=== PATIENT | male | born 1960 | race Caucasian/White ===

== ENCOUNTER 2021-12-14 08:00 | Emergency (ER) | payer MEDICARE, OTHER ==
[~2021-12-14] VITALS: Ht 180.3 cm; Wt 86.2 kg
--- NOTE | 2021-12-14 08:19 | NUR ---
Recived pt 61 yrs male walling in c/o maria isabel not feeling function will no weeknes respition spont and easy no distress no SI & HI seen by Dr Albarado
--- NOTE | 2021-12-14 08:20 | NUR ---
AT BEDSIDE FOR EVAL.
[2021-12-14] MEDS ORDERED: LORAZEPAM 1 MG TABLET ONE (08:42)
--- NOTE | 2021-12-14 08:46 | NUR ---
Blood drow by lab tack ekg done
[2021-12-14] MEDS ORDERED: LORAZEPAM 1 MG TABLET PO ONE (09:00)
[2021-12-14 09:05] LABS: BASOPHILS % (AUTO) 0.3 % (0.0-2.0); EOSINOPHILS % (AUTO) 0.7 % (0.0-6.0); HEMATOCRIT 47 % (39-51); HEMOGLOBIN 15.4 g/dL (13.5-17.5); LYMPHOCYTES # (AUTO) 0.8 K/uL (0.8-4.8); LYMPHOCYTES % (AUTO) 12.1 % (20.0-44.0); MEAN CORPUSCULAR HGB CONC 33 g/dl (31.0-36.0); MEAN CORPUSCULAR VOLUME 95 fL (80-96); MONOCYTES # (AUTO) 0.6 K/uL (0.1-1.30); MONOCYTES % (AUTO) 9.3 % (2.0-12.0); NEUTROPHILS # (AUTO) 5.1 K/uL (1.8-8.9); NEUTROPHILS % (AUTO) 77.6 % (43.0-81.0); PLATELET COUNT (AUTO) 231 K/uL (150-450); RED BLOOD CELL COUNT(AUTO) 4.94 MIL/uL (4.5-6.0); WHITE BLOOD COUNT (AUTO) 6.6 K/uL (4.3-11.0)
[2021-12-14 09:11] VITALS: BP 124/80
[2021-12-14 09:23] LABS: ALANINE AMINOTRANSFERASE 31 U/L (12-78); ALBUMIN 3.7 g/dL (3.4-5.0); ALCOHOL, BLOOD < 3 mg/dL (0-0); ALKALINE PHOSPHATASE 71 U/L (46-116); ASPARTATE AMINOTRANSFERASE 21 U/L (15-37); BILIRUBIN,DIRECT 0.1 mg/dL (0.0-0.2); BILIRUBIN,TOTAL 0.5 mg/dL (0.2-1.0); CALCIUM, SERUM 9.1 mg/dL (8.5-10.1); CARBON DIOXIDE 25 mmol/L (21-32); CHLORIDE 106 mmol/L (98-107); CREATININE 0.9 mg/dL (0.6-1.3); GLUCOSE 110 mg/dL (74-106); SODIUM SERUM 138 mmol/L (136-145); UREA NITROGEN, BLOOD 15 mg/dL (7-18)
[2021-12-14 09:24] LABS: ACETAMINOPHEN 0 ug/ml (10-30)
--- NOTE | 2021-12-14 09:40 | NUR ---
pt walking out her refused his ativan 1mg Brando coburn and aware refused tx
== END 2021-12-14 09:52 | disposition left against medical advice (07) ==
LOC: ER 08:02
DX: F41.9 Anxiety disorder, unspecified (principal); R44.0 Auditory hallucinations; F32.A Depression, unspecified; Z86.59 Personal history of other mental and behavioral disorders; Z60.2 Problems related to living alone
CPT/HCPCS: 36415; 80048-TC; 80076-TC; 85025-TC; G0480

== ENCOUNTER 2021-12-27 07:16 | Emergency (ER) | payer MEDICARE, OTHER ==
[~2021-12-27] VITALS: Ht 180.3 cm; Wt 86.2 kg
[2021-12-27] MEDS ORDERED: LORAZEPAM 1 MG TABLET ONE (07:55)
--- NOTE | 2021-12-27 07:57 | NUR ---
DR FREEMAN AT BEDSIDE TALKING TO THE PATIENT
[2021-12-27] MEDS ORDERED: LORAZEPAM 1 MG TABLET PO ONE (08:00)
--- NOTE | 2021-12-27 08:00 | NUR ---
bibs for feeling anxious. Will continue to monitor the patient.
[2021-12-27] MEDS ORDERED: LORA-259 PO (08:05)
--- NOTE | 2021-12-27 08:08 | NUR ---
Patient discharged to home in stable condition. Written and verbal after care instructions given. Patient verbalizes understanding of instruction.
[2021-12-27 08:09] VITALS: BP 131/81
== END 2021-12-27 08:09 | disposition home or self-care (01) ==
LOC: ER 07:21
DX: F41.9 Anxiety disorder, unspecified (principal); Z76.0 Encounter for issue of repeat prescription; F42.9 Obsessive-compulsive disorder, unspecified; Z86.59 Personal history of other mental and behavioral disorders; Z60.2 Problems related to living alone

== ENCOUNTER 2021-12-28 02:26 | Emergency (ER) | payer MEDICARE, OTHER ==
[~2021-12-28] VITALS: Ht 180.3 cm; Wt 86.2 kg
[~2021-12-28 02:26] MED LIST: LORA-259 PO
[2021-12-28] MEDS ORDERED: MECLIZINE HCL 12.5 MG TABLET ONE (02:54)
[2021-12-28] MEDS ORDERED: MECLIZINE HCL 12.5 MG TABLET PO ONE (03:00)
--- NOTE | 2021-12-28 03:20 | NUR ---
TO ER BED 9. [id number] FRM HOME C/O DIZZY X 2 WEEKS, STATES "CANT THINK" "HE'S THE ONE SPINNING, NOT THE ROOM". DID NOT TAKE ANYTHING FOR RELIEF. DENIES AND CHEST PAIN. NOT IN RESPIRATORY DISTRESS. CONNECTED TO MONITOR. AWAITING MD ADAME
[2021-12-28 03:22] LABS: BASOPHILS % (AUTO) 0.4 % (0.0-2.0); EOSINOPHILS % (AUTO) 1.4 % (0.0-6.0); HEMATOCRIT 49 % (39-51); HEMOGLOBIN 16.3 g/dL (13.5-17.5); LYMPHOCYTES # (AUTO) 1.2 K/uL (0.8-4.8); LYMPHOCYTES % (AUTO) 15.8 % (20.0-44.0); MEAN CORPUSCULAR HGB CONC 34 g/dl (31.0-36.0); MEAN CORPUSCULAR VOLUME 95 fL (80-96); MONOCYTES # (AUTO) 0.7 K/uL (0.1-1.30); MONOCYTES % (AUTO) 8.7 % (2.0-12.0); NEUTROPHILS # (AUTO) 5.6 K/uL (1.8-8.9); NEUTROPHILS % (AUTO) 73.7 % (43.0-81.0); PLATELET COUNT (AUTO) 214 K/uL (150-450); RED BLOOD CELL COUNT(AUTO) 5.15 MIL/uL (4.5-6.0); WHITE BLOOD COUNT (AUTO) 7.6 K/uL (4.3-11.0)
[2021-12-28 03:30] VITALS: BP 141/79
--- NOTE | 2021-12-28 03:30 | NUR ---
PT REFUSED CT; DR. ARNALDO GUERRERO AWARE
[2021-12-28 03:31] LABS: CALCIUM, SERUM 9.1 mg/dL (8.5-10.1); CARBON DIOXIDE 27 mmol/L (21-32); CHLORIDE 103 mmol/L (98-107); GLUCOSE 105 mg/dL (74-106); SODIUM SERUM 136 mmol/L (136-145); UREA NITROGEN, BLOOD 27 mg/dL (7-18)
[2021-12-28 03:38] LABS: ALANINE AMINOTRANSFERASE 26 U/L (12-78); ALBUMIN 3.9 g/dL (3.4-5.0); ALKALINE PHOSPHATASE 87 U/L (46-116); ASPARTATE AMINOTRANSFERASE 22 U/L (15-37); BILIRUBIN,DIRECT 0.1 mg/dL (0.0-0.2); BILIRUBIN,TOTAL 0.6 mg/dL (0.2-1.0); TOTAL PROTEIN, SERUM 7.6 g/dL (6.4-8.2)
--- NOTE | 2021-12-28 03:42 | NUR ---
Patient discharged to home in stable condition. Written and verbal after care instructions given. Patient verbalizes understanding of instruction.
== END 2021-12-28 04:15 | disposition home or self-care (01) ==
LOC: ER 02:33
DX: Z71.1 Person with feared health complaint in whom no diagnosis is made (principal); F41.9 Anxiety disorder, unspecified; Z76.5 Malingerer [conscious simulation]; Z86.59 Personal history of other mental and behavioral disorders; Z60.2 Problems related to living alone; Z79.52 Long term (current) use of systemic steroids
CPT/HCPCS: 36415; 80048; 80076; 84484; 85025; 85730; 93005; 99284; J8597

== ENCOUNTER 2022-03-09 00:05 | Emergency (ER) | payer MEDICARE, OTHER ==
[~2022-03-09] VITALS: Ht 180.3 cm; Wt 83.9 kg
--- NOTE | 2022-03-09 00:20 | NUR ---
TO ER BED 14. [id number] FROM HOME C/O ANXIETY. AAOX4. AMBULATORY WITH STEADY GAIT. BREATHING IS EVEN AND NONLABORED. CONNECTED TO MONITOR. AWAITING MD ADAME
[2022-03-09] MEDS ORDERED: clonazePAM 1 MG TABLET PO ONE ×2 (00:30→03:30)
[2022-03-09] MEDS ORDERED: clonazePAM 0.5 MG TABLET ONE ×2 (00:40→03:27)
[2022-03-09] MEDS ORDERED: CLOM25CA2 PO (03:47)
[2022-03-09] MEDS ORDERED: CLON1TAB PO (03:47)
[2022-03-09 03:51] VITALS: BP 136/84
--- NOTE | 2022-03-09 03:51 | NUR ---
Patient discharged to home in stable condition. Written and verbal after care instructions given. Patient verbalizes understanding of instruction.
== END 2022-03-09 03:55 | disposition home or self-care (01) ==
LOC: ER 00:12
DX: F41.9 Anxiety disorder, unspecified (principal); F42.9 Obsessive-compulsive disorder, unspecified; F32.A Depression, unspecified; Z60.2 Problems related to living alone; Z79.899 Other long term (current) drug therapy
CPT/HCPCS: 82962-TC

== ENCOUNTER 2022-03-13 13:30 | Emergency (ER) | payer MEDICARE, OTHER ==
[~2022-03-13] VITALS: Ht 180.3 cm; Wt 83.9 kg
[~2022-03-13 13:30] MED LIST changes: +CLOM25CA2 PO; +CLON1TAB PO
--- NOTE | 2022-03-13 13:31 | NUR ---
TO ER BED 14, BIB RA 860 FROM HOME,C/O HEADACHE,TRIPPED/FELL "FEW DAYS AGO, AAOX3, BREATHING EVEN AND NON LABORED, AWAITING MD ADAME
[2022-03-13] MEDS ORDERED: clonazePAM 1 MG TABLET PO ONE ×2 (14:30→17:30)
[2022-03-13] MEDS ORDERED: clonazePAM 0.5 MG TABLET ONE ×2 (14:36→17:04)
--- NOTE | 2022-03-13 15:05 | NUR ---
COVID SWAB DONE AND SENT TO LAB
[2022-03-13 15:14] LABS: BILIRUBIN,URINE NEGATIVE (NEGATIVE); COLOR,URINE YELLOW (YELLOW); LEUKOCYTE ESTERASE ,URINE NEGATIVE (NEGATIVE); NITRITE, URINE NEGATIVE (NEGATIVE); PH,URINE 6.5 (5.0-8.0); PROTEIN,URINE NEGATIVE (NEGATIVE); UGLUCOSE NEGATIVE (NEGATIVE); UROBILINOGEN,URINE 0.2 EU/dL (0.2)
[2022-03-13 15:16] LABS: BASOPHILS % (AUTO) 0.2 % (0.0-2.0); EOSINOPHILS % (AUTO) 0.5 % (0.0-6.0); HEMATOCRIT 49 % (39-51); HEMOGLOBIN 16.4 g/dL (13.5-17.5); LYMPHOCYTES # (AUTO) 0.9 K/uL (0.8-4.8); LYMPHOCYTES % (AUTO) 12.9 % (20.0-44.0); MEAN CORPUSCULAR HGB CONC 34 g/dl (31.0-36.0); MEAN CORPUSCULAR VOLUME 93 fL (80-96); MONOCYTES # (AUTO) 0.5 K/uL (0.1-1.30); MONOCYTES % (AUTO) 7.4 % (2.0-12.0); NEUTROPHILS # (AUTO) 5.8 K/uL (1.8-8.9); PLATELET COUNT (AUTO) 243 K/uL (150-450); RED BLOOD CELL COUNT(AUTO) 5.22 MIL/uL (4.5-6.0); WHITE BLOOD COUNT (AUTO) 7.3 K/uL (4.3-11.0)
[2022-03-13 15:25] LABS: CARBON DIOXIDE 31 mmol/L (21-32); CHLORIDE 103 mmol/L (98-107); GLUCOSE 109 mg/dL (74-106); POTASSIUM 3.8 mmol/L (3.5-5.1); SODIUM SERUM 139 mmol/L (136-145); UREA NITROGEN, BLOOD 18 mg/dL (7-18)
[2022-03-13 15:31] LABS: ALANINE AMINOTRANSFERASE 25 U/L (12-78); ALKALINE PHOSPHATASE 68 U/L (46-116); ASPARTATE AMINOTRANSFERASE 18 U/L (15-37); BILIRUBIN,DIRECT 0.2 mg/dL (0.0-0.2); BILIRUBIN,TOTAL 0.8 mg/dL (0.2-1.0); TOTAL PROTEIN, SERUM 7.7 g/dL (6.4-8.2)
[2022-03-13] MEDS ORDERED: TEMA15CA5 PO (15:33)
[2022-03-13] MEDS ORDERED: MIRT7.5T10 PO (15:33)
[2022-03-13 15:39] LABS: ALCOHOL, BLOOD < 3 mg/dL (0-0)
[2022-03-13 16:22] LABS: BACTERIA,URINE None seen /HPF (None Seen); MUCUS,URINE Few /LPF (None Seen); RBC,URINE 0-2 /HPF (0-2); SQUAMOUS EPITHELIAL CELL,UR 0-2 /HPF (None Seen); WBC,URINE 0-2 /HPF (0-3)
--- NOTE | 2022-03-13 16:23 | NUR ---
CALLED [facility] [phone]
--- NOTE | 2022-03-13 16:43 | NUR ---
GOT BED 215-A AFTER COVID RESULT.
--- NOTE | 2022-03-13 18:05 | NUR ---
Patient discharged to home in stable condition. Written and verbal after care instructions given. Patient verbalizes understanding of instruction.
[2022-03-13 18:19] VITALS: BP 130/81
== END 2022-03-13 18:19 | disposition home or self-care (01) ==
LOC: ER 13:48
DX: F41.9 Anxiety disorder, unspecified (principal); R51.9 Headache, unspecified; Z20.822 Contact with and (suspected) exposure to COVID-19; Z91.81 History of falling; F42.9 Obsessive-compulsive disorder, unspecified; F32.9 Major depressive disorder, single episode, unspecified; Z79.899 Other long term (current) drug therapy; R03.0 Elevated blood-pressure reading, without diagnosis of hypertension
CPT/HCPCS: 36415; 80048-TC; 80076-TC; 81001; 85025-TC; C9803; G0480

== ENCOUNTER 2022-03-28 19:39 | Emergency (ER) | payer MEDICARE, OTHER ==
[~2022-03-28] VITALS: Ht 170.2 cm; Wt 65.3 kg
[~2022-03-28 19:39] MED LIST changes: -CLOM25CA2 PO; -LORA-259 PO; +MIRT7.5T10 PO; +TEMA15CA5 PO
[2022-03-28] MEDS ORDERED: IV NS 0.9% 1,000 ML BAG IV ONE (20:30)
[2022-03-28 20:39] VITALS: BP 114/71
--- NOTE | 2022-03-28 20:39 | NUR ---
[id number] FROM HOME C/O LIGHTHEADEDNESS WHEN WALKING WITH GENERALIZED BODY. WEAKNESS ORTHO BP SITTIN/78 STANDING 114/71. PT A/OX4. TOLERATING R/A WELL; RESP EVEN AND NON LABORED. AMBULATORY WITH STEADY GAIT
--- NOTE | 2022-03-28 20:53 | NUR ---
BLOOD COLLECTED AND SENT TO LAB
[2022-03-28 21:26] LABS: BASOPHILS % (AUTO) 0.3 % (0.0-2.0); EOSINOPHILS % (AUTO) 0.9 % (0.0-6.0); HEMATOCRIT 51 % (39-51); LYMPHOCYTES # (AUTO) 1.3 K/uL (0.8-4.8); LYMPHOCYTES % (AUTO) 29.4 % (20.0-44.0); MEAN CORPUSCULAR HGB CONC 33 g/dl (31.0-36.0); MEAN CORPUSCULAR VOLUME 92 fL (80-96); MONOCYTES # (AUTO) 0.5 K/uL (0.1-1.30); MONOCYTES % (AUTO) 11.4 % (2.0-12.0); NEUTROPHILS # (AUTO) 2.6 K/uL (1.8-8.9); PLATELET COUNT (AUTO) 234 K/uL (150-450); RED BLOOD CELL COUNT(AUTO) 5.54 MIL/uL (4.5-6.0); WHITE BLOOD COUNT (AUTO) 4.5 K/uL (4.3-11.0)
[2022-03-28] MEDS ORDERED: LORAZEPAM 1 MG TABLET PO ONE (21:30)
[2022-03-28] MEDS ORDERED: LORAZEPAM 1 MG TABLET ONE (21:37)
[2022-03-28 21:48] LABS: ALANINE AMINOTRANSFERASE 52 U/L (12-78); ALBUMIN 3.6 g/dL (3.4-5.0); ALKALINE PHOSPHATASE 59 U/L (46-116); ASPARTATE AMINOTRANSFERASE 32 U/L (15-37); BILIRUBIN,DIRECT 0.2 mg/dL (0.0-0.2); BILIRUBIN,TOTAL 0.5 mg/dL (0.2-1.0); CALCIUM, SERUM 8.5 mg/dL (8.5-10.1); CARBON DIOXIDE 26 mmol/L (21-32); CHLORIDE 103 mmol/L (98-107); CREATININE 1.3 mg/dL (0.6-1.3); GLUCOSE 92 mg/dL (74-106); POTASSIUM 3.6 mmol/L (3.5-5.1); SODIUM SERUM 139 mmol/L (136-145); TOTAL PROTEIN, SERUM 7.6 g/dL (6.4-8.2); UREA NITROGEN, BLOOD 23 mg/dL (7-18)
--- NOTE | 2022-03-28 22:00 | NUR ---
PATIENT REQUESTED FOR IV REMOVAL. IV WAS REMOVED AND 4X4 WAS PLACED.
--- NOTE | 2022-03-28 22:23 | NUR ---
Patient eloped from facility. ER MD notified.
[2022-03-28 23:07] LABS: BAND % (MANUAL) 1 % (0.0-5.0); EOSINOPHILS % (MANUAL) 2 % (0-4); LYMPHOCYTES % (MANUAL) 30 % (16-48); MONOCYTES % (MANUAL) 7 % (0-11.0); NEUTROPHILS % (MANUAL) 57 (42-76); REACTIVE LYMPHOCYTES 3 % (0-0)
== END 2022-03-28 22:23 | disposition left against medical advice (07) ==
LOC: ER 19:47
DX: R42 Dizziness and giddiness (principal); F41.9 Anxiety disorder, unspecified; F32.A Depression, unspecified; Z60.2 Problems related to living alone; Z79.899 Other long term (current) drug therapy
CPT/HCPCS: 99285; 96360; 70450; 71045; 93005; 85025; 80048; 80076; 36415; 84484; 85007; J7030

== ENCOUNTER 2022-04-09 19:07 | Emergency (ER) | payer MEDICARE, OTHER ==
[~2022-04-09] VITALS: Ht 177.8 cm; Wt 68.0 kg
[2022-04-09 19:42] VITALS: BP 131/88
--- NOTE | 2022-04-09 20:56 | NUR ---
Patient discharged to home in stable condition. Written and verbal after care instructions given. Patient verbalizes understanding of instruction. pt ambulatory with a steady gait
== END 2022-04-09 21:06 | disposition home or self-care (01) ==
LOC: ER 19:23
DX: F41.9 Anxiety disorder, unspecified (principal); Z76.5 Malingerer [conscious simulation]; F32.A Depression, unspecified; F42.9 Obsessive-compulsive disorder, unspecified; Z60.2 Problems related to living alone; Z79.899 Other long term (current) drug therapy

== ENCOUNTER 2022-04-12 07:20 | Inpatient (IN) | payer MEDICARE, OTHER ==
[~2022-04-12] VITALS: Ht 170.2 cm; Wt 61.2 kg
--- NOTE | 2022-04-12 07:25 | NUR ---
[id number] FROM HOME FOR SI AND ON 5150 HOLD FOR DANGER TO HIMSELF. PATIENT STATED THAT HE TOOK 30 TABS OF CITRON. ATTACHED TO MONITOR, VITALS ARE WITHIN NORMAL LIMITS. PT CHANGED INTO HOSPITAL GOWN. SAFETY MEASURES APPLIED. 1:1 SITTER AT BEDSIDE. AWAITING MD ORDERS.
--- NOTE | 2022-04-12 07:44 | NUR ---
COVID SWAB DONE AND SENT
[2022-04-12] MEDS ORDERED: ACTIVATED CHARCOAL 25 GM/120 ML TUBE ONE (07:46)
--- NOTE | 2022-04-12 07:49 | NUR ---
IV ESTBLISHED L HAND 20G, ADDITIONAL IV ESTBLAIHSED R AC 18G. LABS DRAWN AND COLLECTED AT BEDSIDE.
[2022-04-12 07:56] LABS: BASOPHILS % (AUTO) 0.4 % (0.0-2.0); EOSINOPHILS % (AUTO) 0.9 % (0.0-6.0); HEMATOCRIT 45 % (39-51); HEMOGLOBIN 15.2 g/dL (13.5-17.5); LYMPHOCYTES # (AUTO) 1.4 K/uL (0.8-4.8); LYMPHOCYTES % (AUTO) 21.8 % (20.0-44.0); MEAN CORPUSCULAR HGB CONC 34 g/dl (31.0-36.0); MEAN CORPUSCULAR VOLUME 93 fL (80-96); MONOCYTES # (AUTO) 0.8 K/uL (0.1-1.30); MONOCYTES % (AUTO) 12.9 % (2.0-12.0); PLATELET COUNT (AUTO) 233 K/uL (150-450); RED BLOOD CELL COUNT(AUTO) 4.87 MIL/uL (4.5-6.0); WHITE BLOOD COUNT (AUTO) 6.2 K/uL (4.3-11.0)
[2022-04-12] MEDS ORDERED: ACTIVATED CHARCOAL 25 GM/120 ML TUBE PO ONE ×2 (08:00)
[2022-04-12] MEDS ORDERED: IV NS 0.9% 1,000 ML BAG IV ONE (08:00)
[2022-04-12 08:59] LABS: CALCIUM, SERUM 8.4 mg/dL (8.5-10.1); CARBON DIOXIDE 23 mmol/L (21-32); CHLORIDE 104 mmol/L (98-107); CREATININE 0.8 mg/dL (0.6-1.3); GLUCOSE 93 mg/dL (74-106); POTASSIUM 3.4 mmol/L (3.5-5.1); SODIUM SERUM 140 mmol/L (136-145); UREA NITROGEN, BLOOD 11 mg/dL (7-18)
[2022-04-12 09:06] LABS: ACETAMINOPHEN 29 ug/ml (10-30); BILIRUBIN,TOTAL 1.4 mg/dL (0.2-1.0); TOTAL PROTEIN, SERUM 7.8 g/dL (6.4-8.2)
[2022-04-12 09:08] LABS: ALCOHOL, BLOOD < 3 mg/dL (0-0)
[2022-04-12 10:38] LABS: ASPARTATE AMINOTRANSFERASE 86 U/L (15-37)
--- NOTE | 2022-04-12 11:00 | NUR ---
CALLED NURSING SUP REGARDING PT BED
[2022-04-12 11:03] LABS: ALBUMIN 3.7 g/dL (3.4-5.0); BILIRUBIN,DIRECT 0.3 mg/dL (0.0-0.2)
[2022-04-12 11:26] LABS: ALANINE AMINOTRANSFERASE 39 U/L (12-78); ALKALINE PHOSPHATASE 52 U/L (46-116)
[2022-04-12] MEDS ORDERED: MAGNESIUM HYDROXIDE 30 ML UDC PO PRN (12:00)
[2022-04-12] MEDS ORDERED: MAG HYDROX/AL HYDROX/SIMETH 30 ML UDC PO PRN (12:00)
[2022-04-12] MEDS ORDERED: Z GUARD REMEDY 4 OZ OINT TP PRN (12:00)
[2022-04-12] MEDS ORDERED: IV NS 0.9% 1,000 ML IV PRN (12:00)
[2022-04-12] MEDS ORDERED: ONDANSETRON HCL/PF 4 MG/2 ML VIAL IVP PRN (12:00)
[2022-04-12] MEDS ORDERED: PANTOPRAZOLE 40 MG VIAL IV SCH (12:00)
[2022-04-12] MEDS ORDERED: LORAZEPAM INJ 2 MG/ML VIAL IV PRN (12:00)
[2022-04-12] MEDS ORDERED: ACETAMINOPHEN 325 MG TABLET PO PRN (12:00)
[2022-04-12] MEDS ORDERED: PANTOPRAZOLE 40 MG VIAL ONE (12:31)
[2022-04-12] MEDS ORDERED: POTASSIUM CL. PREMIX PERIPHER. 100 ML ONE (12:32)
--- NOTE | 2022-04-12 12:32 | NUR ---
CLINICALS FAXED TO [facility]. [phone]. AWAITING RESPONSE AT THIS TIME.
--- NOTE | 2022-04-12 12:44 | NUR ---
URINE COLLECTED AND SENT
--- NOTE | 2022-04-12 12:51 | NUR ---
SPOKE TO POISON CONTROL AND THEY ARE SUGGESTION A REPEAT LIVER FUNCTION TEST AND ACETAMINOPHEN AROUND 1315. ACETYLCEYSTEINE IS RECOMMENDED IF ACETAMINOPHEN IS MORE THAN 10. DOSAGE SUGESTED 150MG/KG FOR THE FIRST HOUR AND MAITENANCE 300MG/KG OVER THE NEXT 20 HOURS. WILL NOTIFIED ADMITTING .
[2022-04-12] MEDS: POTASSIUM CL. PREMIX PERIPHER. 50 ML IV SCH ×2 (12:52→13:52)
[2022-04-12 13:33] LABS: BILIRUBIN,URINE NEGATIVE (NEGATIVE); COLOR,URINE YELLOW (YELLOW); LEUKOCYTE ESTERASE ,URINE NEGATIVE (NEGATIVE); NITRITE, URINE NEGATIVE (NEGATIVE); PROTEIN,URINE NEGATIVE (NEGATIVE); UGLUCOSE NEGATIVE (NEGATIVE); UROBILINOGEN,URINE 0.2 EU/dL (0.2)
[2022-04-12 13:49] LABS: BACTERIA,URINE 1+ /HPF (None Seen); SQUAMOUS EPITHELIAL CELL,UR 0-2 /HPF (None Seen)
[2022-04-12 14:34] LABS: ALBUMIN 3.3 g/dL (3.4-5.0); BILIRUBIN,DIRECT 0.2 mg/dL (0.0-0.2); BILIRUBIN,TOTAL 0.7 mg/dL (0.2-1.0); TOTAL PROTEIN, SERUM 6.7 g/dL (6.4-8.2)
[2022-04-12 16:17] LABS: CALCIUM, SERUM 8.4 mg/dL (8.5-10.1); CREATININE 0.9 mg/dL (0.6-1.3); POTASSIUM 4.1 mmol/L (3.5-5.1)
[2022-04-12 23:52] LABS: ALBUMIN 3.6 g/dL (3.4-5.0); BILIRUBIN,DIRECT 0.2 mg/dL (0.0-0.2); BILIRUBIN,TOTAL 0.9 mg/dL (0.2-1.0)
--- NOTE | 2022-04-13 00:17 | NUR ---
REPORT GIVEN TO YOSELYN
[2022-04-13 01:16] VITALS: BP 135/80
--- NOTE | 2022-04-13 01:16 | NUR ---
GPS ADMISSION NOTE, RECEIVED PATIENT FROM E.R. / HOMELESS. PATIENT ARRIVED ON THIS UNIT AT 0116 VIA WHEELCHAIR WITH 1 BURRITO MAKER ESCORT. PATIENT ADMITTED ON A 5150 HOLD FOR DTS. PER HOLD PATIENT TOOK UNKNOWN AMOUNT OF MIRTAZAPINE PILLS IN A ATTEMPT TO OVERDOSE. PATIENT STATED, " I WANT TO ". PATIENT IS NOT WILLING TO CONTRACT FOR SAFETY AT THIS TIME. THE 5150 WAS REVIEWED AND THE DOCUMENTATION IN THE 5150 HOLD APPEARS TO REFLECT THE PRESENTATION OF THE PATIENT. UPON FACE TO FACE ASSESSMENT PATIENT IS NOTED TO BEING DEPRESSED, DISHEVELED, DISORGANIZED, COOPERATIVE, AND NEEDS REDIRECTION. PATIENT IS CURRENTLY LYING IN BED AWAKE, HAS NO S/S OR COMPLAINTS OF PAIN. PATIENT IS DISPLAYING NO S/S OF APPARENT DISTRESS. PATIENT BREATHING IS UNLABORED WITH EQUAL RISE AND FALL OF THE CHEST. PATIENT IS ALERT AND ORIENTATED X 3 ON ROOM AIR. PATIENT ASSISTED WITH TURING AND REPOSITIONING Q2HR AND PRN FOR COMFORT AND CIRCULATION. PATIENT HAS NO NEEDS AT THIS TIME. PATIENT DENIES HOMICIDAL IDEATIONS AT THIS TIME. PATIENT REFUSED TO SIGNS ANY PAPER WORK. PATIENT ADVISED OF HIS HOLD AND PATIENT RIGHTS BOOKLET GIVEN. PATIENT IS UNDER THE PSYCHIATRIC CARE OF DR. QUINTANA AND THE MEDICAL CARE OF JAYY PAGAN NP. PATIENT BELONGINGS WERE INVENTORIED AND CHECKED FOR CONTRABAND. ALL CONTRABAND REMOVED AND STORED IN PATIENT HALLWAY LOCKER. PATIENT ADVANCED DIRECTIVES PREFERENCE, IMMUNIZATIONS QUESTIONER, NECESSARY PAPERWORK COMPLETED. PATIENT REFUSED SKIN ASSESSMENT. PATIENT ORIENTATED TO ROOM, FLOOR, AND STAFF WITH ALL QUESTIONS ANSWERED. PATIENT EDUCATED ON THE USE OF THE CALL LIGHT. PATIENT BED SIDE RAILS ARE UP X 2 FOR SAFETY. PATIENT BED IS LOCKED, LOW AND I WILL CONTINUE TO MONITOR THIS PATIENT Q 15 MIN WITH THE HELP OF STAFF TO MAINTAIN SAFETY.
--- NOTE | 2022-04-13 01:47 | NUR ---
PT TRANSPORTED TO ROOM 212 IN STABLE CONDITION
[2022-04-13] MEDS ORDERED: MAGNESIUM HYDROXIDE 30 ML UDC PO PRN (02:00)
[2022-04-13] MEDS ORDERED: MAG HYDROX/AL HYDROX/SIMETH 30 ML UDC PO PRN (02:00)
[2022-04-13] MEDS ORDERED: TEMAZEPAM 7.5 MG CAPSULE PO PRN (02:00)
[2022-04-13] MEDS ORDERED: BLOOD SUGAR DIAGNOSTIC 1 EACH STRIP IN ONE (02:00)
[2022-04-13] MEDS ORDERED: ACETAMINOPHEN 325 MG TABLET PO PRN (02:00)
--- NOTE | 2022-04-13 04:31 | NUR ---
PT REFUSED EKG. KANA PALMER.
--- NOTE | 2022-04-13 09:08 | NUR ---
RN-CO: PATIENT WAS SEEN AND EXAMINED BY DR BAILON. HE HAS FLAT AFFECT, UNMOTIVATED, ISOLATIVE., DEPRESSED. HE IS UNKEMPT AND DISHEVELED.I WILL CONTINUE TO MONITOR., AND ENCOURAGED TO VENTILATE FEELINGS.
[2022-04-13] MEDS: OLANZAPINE 2.5 MG TABLET PO SCH ×2 (10:05→10:39)
[2022-04-13] MEDS: clonazePAM 0.5 MG TABLET PO PRN (10:29)
--- NOTE | 2022-04-13 10:39 | NUR ---
RN-CO: KLONOPIN 0.5MG PO FOR SEVERE RESTLESSNESS.
--- NOTE | 2022-04-13 12:02 | NUR ---
RN-CO: PATIENT REFUSED 1ST DOSE OF ZYPREXA 2.5 MG PO. PT STATED " I DON'T WANT TAKE IT EVERYTIME I TAKE THAT I FEEL LIKE I AM FLOATING."
[2022-04-13 12:19] LABS: BASOPHILS % (AUTO) 0.5 % (0.0-2.0); EOSINOPHILS % (AUTO) 1.4 % (0.0-6.0); HEMATOCRIT 46 % (39-51); HEMOGLOBIN 15.2 g/dL (13.5-17.5); LYMPHOCYTES % (AUTO) 16.4 % (20.0-44.0); MEAN CORPUSCULAR HGB CONC 33 g/dl (31.0-36.0); MEAN CORPUSCULAR VOLUME 93 fL (80-96); MONOCYTES # (AUTO) 0.5 K/uL (0.1-1.30); MONOCYTES % (AUTO) 7.7 % (2.0-12.0); NEUTROPHILS # (AUTO) 4.6 K/uL (1.8-8.9); PLATELET COUNT (AUTO) 255 K/uL (150-450); RED BLOOD CELL COUNT(AUTO) 4.91 MIL/uL (4.5-6.0); WHITE BLOOD COUNT (AUTO) 6.2 K/uL (4.3-11.0)
[2022-04-13 12:35] LABS: CALCIUM, SERUM 9.3 mg/dL (8.5-10.1); CREATININE 1.2 mg/dL (0.6-1.3); MAGNESIUM 2.3 mg/dL (1.8-2.4); PHOSPHORUS 3.4 mg/dL (2.5-4.9); POTASSIUM 3.6 mmol/L (3.5-5.1)
[2022-04-13 19:53] VITALS: BP 145/79
[2022-04-14 06:49] LABS: BASOPHILS % (AUTO) 0.6 % (0.0-2.0); EOSINOPHILS % (AUTO) 1.7 % (0.0-6.0); HEMATOCRIT 41 % (39-51); HEMOGLOBIN 13.6 g/dL (13.5-17.5); LYMPHOCYTES # (AUTO) 1.7 K/uL (0.8-4.8); LYMPHOCYTES % (AUTO) 28.8 % (20.0-44.0); MEAN CORPUSCULAR HGB CONC 34 g/dl (31.0-36.0); MEAN CORPUSCULAR VOLUME 94 fL (80-96); MONOCYTES # (AUTO) 0.7 K/uL (0.1-1.30); MONOCYTES % (AUTO) 11.7 % (2.0-12.0); NEUTROPHILS # (AUTO) 3.3 K/uL (1.8-8.9); NEUTROPHILS % (AUTO) 57.2 % (43.0-81.0); PLATELET COUNT (AUTO) 209 K/uL (150-450); RED BLOOD CELL COUNT(AUTO) 4.35 MIL/uL (4.5-6.0); WHITE BLOOD COUNT (AUTO) 5.8 K/uL (4.3-11.0)
[2022-04-14 07:13] LABS: CALCIUM, SERUM 8.9 mg/dL (8.5-10.1)
[2022-04-14 08:00] VITALS: BP 147/83
--- NOTE | 2022-04-14 09:03 | NUR ---
KEN Initial Discharge Plan: Patient stated that he currently resides at [address] [place] [address]; ([phone]). He stated he would want to return back home upon discharge. KEN will work with the MD, family, and pt to help coordinate appropriate discharge.
--- NOTE | 2022-04-14 09:04 | NUR ---
KEN Clinical Note: Patient placed on a 5150 hold for danger to himself. Patient had suicidal thoughts and has been depressed. Patient stated that he currently resides at [address] [place] [address]; ([phone]). He stated he would want to return back home upon discharge.
--- NOTE | 2022-04-14 09:04 | NUR ---
Treatment Plan: Pt refused to sign treatment plan and was suspicious of this staff and stated "I do not need to sign".
[2022-04-14] MEDS: QUETIAPINE FUMARATE 25 MG TABLET PO SCH ×2 (09:32→17:36)
[2022-04-14] MEDS: clonazePAM 0.5 MG TABLET PO PRN ×2 (11:19→21:15)
--- NOTE | 2022-04-14 11:19 | NUR ---
Patient complain of anxiety medicated with Klonopin 0.5mg x1 will continue to monitor .
--- NOTE | 2022-04-14 11:20 | NUR ---
KEN Family Contact: SW attempted to contact pt's mother Soledad ([phone]), however, phone number did not go through.
[2022-04-14 16:00] VITALS: BP 109/66
[2022-04-14 20:01] VITALS: BP 123/76
[2022-04-15 08:00] VITALS: BP 108/64
[2022-04-15] MEDS: QUETIAPINE FUMARATE 25 MG TABLET PO SCH ×3 (09:29→17:52)
[2022-04-15] MEDS: clonazePAM 0.5 MG TABLET PO PRN (14:05)
--- NOTE | 2022-04-15 14:06 | NUR ---
Patient complain of anxiety medicated with Klonopin 0.5mg x1 will continue to monitor .
[2022-04-15 16:00] VITALS: BP 114/74
--- NOTE | 2022-04-15 19:30 | NUR ---
GPS RN NOTE, RECEIVED PATIENT AWAKE AND IN BED, NO S/S OR COMPLAINTS OF PAIN AT THIS TIME. PATIENT IS DISPLAYING NO S/S OF APPARENT DISTRESS AT THIS TIME. PATIENT BREATHING IS UNLABORED WITH EQUAL RISE AND FALL OF THE CHEST. PATIENT IS ALERT AND ORIENTED X 3 ON ROOM AIR WITH A SPO2 97%. PATIENT IS COMPLIANT WITH MEDICATIONS, ANXIOUS, MAKES NEEDS KNOWN, RESPONDING TO INTERNAL STIMULI AND COOPERATIVE. PATIENT DENIES SUICIDAL AND HOMICIDAL IDEATIONS AT THIS TIME. PATIENT ASSISTED WITH TURNING AND REPOSITIONING Q2HR AND PRN FOR COMFORT AND CIRCULATION. PATIENT HAS NO NEEDS AT THIS TIME. PATIENT EDUCATED ON THE USE OF THE CALL WEI. PATIENT BED SIDE RAILS UP X 2 FOR SAFETY. PATIENT BED IS LOCKED, LOW, WITH BED ALARM ON. WILL CONTINUE TO MONITOR THIS PATIENT Q15 MINUTES WITH THE HELP OF STAFF TO MAINTAIN SAFETY.
[2022-04-15 20:14] VITALS: BP 111/68
[2022-04-16 08:00] VITALS: BP 109/76
[2022-04-16] MEDS: QUETIAPINE FUMARATE 25 MG TABLET PO SCH (08:20)
--- NOTE | 2022-04-16 09:48 | NUR ---
KEN Coordination of Care: Patient will follow up with (manager biologics) [place] [address] ([phone]) on April 30 at 11AM. KEN faxed clinicals ([phone]).
[2022-04-16] MEDS: clonazePAM 0.5 MG TABLET PO PRN ×2 (10:01→14:02)
--- NOTE | 2022-04-16 10:17 | NUR ---
KEN Note: KEN spoke with patient and he stated that he is unsure if he wants to return back home or go to a nursing facility. He stated to check in with him at a different day to see where he would want to go.
--- NOTE | 2022-04-16 10:49 | NUR ---
Court Notification: SW unable to reach pt's mother Soledad ([phone]) as phone number not existing.
--- NOTE | 2022-04-16 13:27 | NUR ---
Court Hearing: Patient's court hearing for 5150 was today and it was upheld for GD.
--- NOTE | 2022-04-16 13:40 | NUR ---
SNF Contact: SW contacted Harvey to ([phone]) from [facility] to find placement for pt. SW faxed H & P, progress notes, and medication list.
--- NOTE | 2022-04-16 15:27 | NUR ---
SNF Contact: Harvey to ([phone]) contacted this contract technical writer and he stated pt is accepted at [facility].
[2022-04-16 16:00] VITALS: BP 131/70
--- NOTE | 2022-04-16 19:35 | NUR ---
GPS RN NOTES RECEIVED ALERT X4,AMBULATE WITH WALKER,FALL PRECAUTIONS OBSERVED,ABLE TO VERBALIZE NEEDS,MED COMPLIANT,FREQUENT CHECK Q 15 MINUTES FOR SAFETY.WILL CONTINUE TO MONITOR BEHAVIOR. Addendum: 04/16/22 at 2007 by DEMETRIA TORRES RN NOTES NOT FOR THIS PATIENT.
--- NOTE | 2022-04-16 19:40 | NUR ---
GPS RN NOTES RECEIVED LAYING COMFORTABLY ON BED,BRESTHING REGULSR,NOT IN ANY FORM OF DISTRESS.PER REPORT BY DAY NURSE,MED COMPLIANT AND COOPERATIVE,TAKE WHOLE PILL,NEGATIVE FOR ASPIRATION.FREQUENT CHECK Q 15 MINUTES FOR SAFTY INITIATED.WILL CONTINUE TO MONITOR BEHAVIOR.
[2022-04-16 20:00] VITALS: BP_SYST 127; BP_DIAS 70; BP_DIAS 71
[2022-04-16] MEDS: MIRTAZAPINE 15 MG TABLET PO SCH (22:00)
--- NOTE | 2022-04-16 22:00 | NUR ---
GPS RN NOTES OFFERED HIS MIRTAZAPINE 15MG PO,BUT REFUSED,COMMENTED I DONT NEED IT NOW,I FEEL DIZZY AND SLEEPY
[2022-04-17 08:00] VITALS: BP 102/64
--- NOTE | 2022-04-17 09:30 | NUR ---
RN Notes: Patient is resting in bed with low energy. He only interacts with staff when he has unexpressed needs. Patient is A&Ox3 and presents with a depressed mood. He also expresses anxiousness - PRN administered. Patient is seclusive with poor peer interaction. Will continue to monitor patient.
[2022-04-17] MEDS: clonazePAM 0.5 MG TABLET PO PRN (10:00)
--- NOTE | 2022-04-17 13:50 | NUR ---
SW Family Contact: SW received a call from pt's mother Soledad ([phone]) and stated pt wants to go to a facility and she was agreeable of this.
[2022-04-17 16:00] VITALS: BP 128/73
[2022-04-17 20:00] VITALS: BP 124/72
--- NOTE | 2022-04-17 20:43 | NUR ---
RN NOTES: PATIENT RESTING IN ROOM. DEPRESSED,ESILY AGITATED, PARNOID, NEEDS FREQUENTLY REDIRECTIONS , ENCOURAGED PT.TO VERBALIZATION OF FEELINGS . ENCOURAGED TO ATTEND IN GROUP ACTIVITIES.ALL NEEDS ATTENDED AND ANTICIPATED, SAFETY PRECAUTIONS MAINTAINED. WILL CONTINUE TO MONITOR Q15MIN ROUNDS FOR SAFETY AND BEHAVIOR.
[2022-04-17] MEDS: MIRTAZAPINE 15 MG TABLET PO SCH (21:12)
[2022-04-18] MEDS: clonazePAM 0.5 MG TABLET PO PRN ×3 (02:19→14:43)
--- NOTE | 2022-04-18 02:22 | NUR ---
RN NOTES: ANXIETY PT. C/O FEELING ANXIOUS ,PRN ATIVAN 0.5 MG PO GIVEN PER PT. REQUEST, WILL CONTINUE TO MONITOR,
--- NOTE | 2022-04-18 02:23 | NUR ---
RN NOTES:ANXIETY PT. C/O FEELING ANXIOUS ,PRN ATIVAN 0.5 MG PO GIVEN PER PT. REQUEST, WILL CONTINUE TO MONITOR,
[2022-04-18 08:00] VITALS: BP 110/68
--- NOTE | 2022-04-18 09:20 | NUR ---
RN Notes: Received pt. asleep in bed, breathing is even and unlabored. Ate 50% for breakfast. Pt. is quiet and with depressed mood. Encouraged to verbalize feelings and motivated to attend group activity. STEEL WHEEL ENGRAVER Lazarus Saldaña in the unit and seen pt. and spoke to the mother. No distress and no agitation noted. Will continue to monitor for safety.
--- NOTE | 2022-04-18 10:07 | NUR ---
KEN Family Contact: KEN contacted pt's mother Soledad ([phone]) who is 90 years old appears to be forgetful. KEN had explained the treatment plan and discharge plan on 04/17/2022, however, she had forgotten. KEN re-explained pt's discharge/treatment plan and stated pt is accepted at [facility] and she was agreeable of this.
--- NOTE | 2022-04-18 14:44 | NUR ---
RN-CO: KLONOPIN 0.5 MG PO REQUESTED FOR C/O RESTLESSNESS DUE TO ANXIETY.
[2022-04-18 16:04] VITALS: BP 114/62
[2022-04-18 20:00] VITALS: BP 119/69
--- NOTE | 2022-04-18 20:30 | NUR ---
RN NOTES: PATIENT RESTING IN ROOM. DEPRESSED,EASILY AGITATED, PARNOID, NEEDS FREQUENTLY REDIRECTIONS , ENCOURAGED PT.TO VERBALIZATION OF FEELINGS . ENCOURAGED TO ATTEND IN GROUP ACTIVITIES.ALL NEEDS ATTENDED AND ANTICIPATED, SAFETY PRECAUTIONS MAINTAINED. WILL CONTINUE TO MONITOR Q15MIN ROUNDS FOR SAFETY AND BEHAVIOR.
[2022-04-18] MEDS: MIRTAZAPINE 15 MG TABLET PO SCH (21:06)
[2022-04-19 08:00] VITALS: BP 99/60
--- NOTE | 2022-04-19 09:35 | NUR ---
RN Notes: Received pt. asleep in bed, breathing is even and unlabored. Ate 100% for breakfast. Pt. is quiet, with depressed mood and isolates in the room.. Encouraged to verbalize feelings and motivated to attend group activity. Needs attended and will continue to monitor for safety.
[2022-04-19] MEDS: clonazePAM 0.5 MG TABLET PO PRN ×2 (09:54→23:25)
[2022-04-19 10:25] VITALS: BP 102/65
[2022-04-19 16:00] VITALS: BP 111/65
[2022-04-19 20:18] VITALS: BP 108/62
--- NOTE | 2022-04-19 20:36 | NUR ---
RN NOTES:PATIENT WALKING IN THE HALLWAY. DEPRESSED,EASILY AGITATED, PARNOID, NEEDS FREQUENTLY REDIRECTIONS , ENCOURAGED PT.TO VERBALIZATION OF FEELINGS . ENCOURAGED TO ATTEND IN GROUP ACTIVITIES.ALL NEEDS ATTENDED AND ANTICIPATED, SAFETY PRECAUTIONS MAINTAINED. WILL CONTINUE TO MONITOR Q15MIN ROUNDS FOR SAFETY AND BEHAVIOR.
[2022-04-19] MEDS: MIRTAZAPINE 15 MG TABLET PO SCH (21:21)
--- NOTE | 2022-04-19 23:26 | NUR ---
RN NOTES: ANXIETY PT. C/O FEELING ANXIOUS .RESTLESS, PARANOID ,PRN,KLONOPIN 0.5 MG PO GIVEN PER PT. REQUEST, WILL CONTINUE WITH PLAN OF CARE.
[2022-04-20] MEDS: clonazePAM 0.5 MG TABLET PO PRN ×3 (09:15→23:54)
--- NOTE | 2022-04-20 09:15 | NUR ---
RN-CO: KLONOPIN 0.5 MG PO REQUESTED FOR MOD ANXIETY.
--- NOTE | 2022-04-20 14:06 | NUR ---
RN NOTE- ANXIETY. KLONOPIN 0.5 MG ADMINISTERED
[2022-04-20 16:00] VITALS: BP 108/71
--- NOTE | 2022-04-20 19:15 | NUR ---
GPS RN NOTES RECEIVED PATIENT IN BED AWAKE, ALERT AND ORIENTED X3, ABLE TO MAKE NEEDS KNOWN. NO S/SX OF ACUTE DISTRESS NOTED. PATIENT IS DISORGANIZED, REPETITIVE, DISHEVELED. DENIES SI/HI/AVH. SAFETY PRECAUTIONS MAINTAINED. WILL CONTINUE TO MONITOR Q15MIN ROUNDS FOR SAFETY AND BEHAVIOR.
[2022-04-20 19:40] VITALS: BP 110/64
--- NOTE | 2022-04-20 20:00 | NUR ---
GPS RN NOTES PATIENT REFUSED WEEKLY SKIN ASSESSMENT.
[2022-04-20] MEDS: MIRTAZAPINE 15 MG TABLET PO SCH (21:03)
[2022-04-21] MEDS: clonazePAM 0.5 MG TABLET PO PRN ×2 (07:19→17:55)
--- NOTE | 2022-04-21 09:15 | NUR ---
RN-CO: PATIENT IS ANXIOUS MOST OF THE TIME BUT DENIED PAIN AND DISCOMFORTS. HE IS UNMOTIVATED TO SELFCARE. HE IS UNKEMPT AND DISHEVELED, HOWEVER HE IS EATING > 80%. PT IS FOCUS ON BENZO. HE DENIES SUICIDAL IDEATION AND HALLUCINATIONS. WE WILL CONTINUE TO MONITOR.
[2022-04-21 16:00] VITALS: BP 122/68
--- NOTE | 2022-04-21 17:55 | NUR ---
RN-CO: CLONOPIN WAS GIVEN FOR C/O SEVERE ANXIETY.
[2022-04-21 19:54] VITALS: BP 107/54
[2022-04-21 20:15] VITALS: BP 107/54
[2022-04-21] MEDS: MIRTAZAPINE 15 MG TABLET PO SCH (21:05)
[2022-04-22] MEDS: clonazePAM 0.5 MG TABLET PO PRN ×5 (03:14→20:52)
--- NOTE | 2022-04-22 03:14 | NUR ---
RN NOTE: ANXIETY PATIENT C/O FEELING ANXIOUS, ANXIOUS AND UNABLE TO SLEEP. PER PATIENT REQUEST, PRN KLONOPIN 0.5 MG PO ADMINISTERED.
[2022-04-22 08:00] VITALS: BP 110/69
--- NOTE | 2022-04-22 08:00 | NUR ---
RN OPENING NOTE PATIENT AWAKE IN BED RESTING. A/O X3, COOPERATIVE, EASILY ANXIOUS, ISOLATIVE. NO S/S OF PAIN NOTED AT THIS TIME. ON ROOM AIR, NO DISTRESS OR SHORTNESS OF BREATH NOTED. PATIENT IS COMPLIANT WITH MEDICATIONS. PATIENT DENIES SUICIDE IDEATION AND HOMICIDAL IDEATIONS AT THIS TIME. FALL AND SAFETY MEASURES IN PLACE, BED ALARM ON, BED IN LOW AND LOCK POSITION, CALL LIGHT AND TABLE WITHIN EASY REACH, SIDE RAILS UP X2. WILL CONTINUE TO MONITOR Q15 MINUTES WITH HELP OF STAFF TO MAINTAIN SAFETY.
[2022-04-22 16:03] VITALS: BP 133/78
--- NOTE | 2022-04-22 19:15 | NUR ---
GPS RN NOTES RECEIVED PATIENT IN IN THE DINING ROOM WATCHING TV. A/OX3, ABLE TO MAKE NEEDS KNOWN. NO S/SX OF ACUTE DISTRESS NOTED. PATIENT APPEARS DEPRESSED, DISHEVELED, UNMOTIVATED TO SELF-CARE, DENIES SI/HI/AVH. ENCOURAGED PT TO VERBALIZE FEELINGS. SAFETY PRECAUTIONS MAINTAINED. WILL CONTINUE TO MONITOR Q15MIN ROUNDS FOR SAFETY AND BEHAVIOR.
[2022-04-22] MEDS: MIRTAZAPINE 15 MG TABLET PO SCH (22:15)
[2022-04-23] MEDS: clonazePAM 0.5 MG TABLET PO PRN ×5 (03:05→22:24)
[2022-04-23 08:00] VITALS: BP_SYST 115; BP_SYST 116; BP_DIAS 69
[2022-04-23 16:00] VITALS: BP 123/76
--- NOTE | 2022-04-23 19:16 | NUR ---
GPS RN NOTES RECEIVED PATIENT IN BED RESTING COMFORTABLY. ALERT AND ORIENTED X3, ABLE TO MAKE NEEDS KNOWN. NO S/SX OF ACUTE DISTRESS NOTED. PATIENT APPEARS DEPRESSED, DISHEVELED, UNMOTIVATED TO SELF-CARE, DENIES SI/HI/AVH. SAFETY PRECAUTIONS MAINTAINED. WILL CONTINUE TO MONITOR Q15MIN ROUNDS FOR SAFETY AND BEHAVIOR.
[2022-04-23 20:00] VITALS: BP 111/65
[2022-04-23] MEDS: MIRTAZAPINE 15 MG TABLET PO SCH (21:02)
[2022-04-24 08:00] VITALS: BP 114/64
--- NOTE | 2022-04-24 09:36 | NUR ---
KEN Family Contact: KEN contacted pt's mother Soledad ([phone]) and notified that pt will dc 04/25 to [facility] as discussed.
--- NOTE | 2022-04-24 10:00 | NUR ---
RN Notes: Received pt. asleep on bed, breathing is even and unlabored. Ate 100% for breakfast, isolates in the room, no social interactions and unkempt. Encouraged to verbalize feelings, motivated to attend group activity and to take shower. Needs attended and will continue to monitor for safety.
[2022-04-24] MEDS: clonazePAM 0.5 MG TABLET PO PRN ×3 (10:50→20:06)
[2022-04-24 16:00] VITALS: BP 113/72
--- NOTE | 2022-04-24 19:33 | NUR ---
GPS RN NOTE, RECEIVED PATIENT AWAKE AND IN BED, NO S/S OR COMPLAINTS OF PAIN AT THIS TIME. PATIENT IS DISPLAYING NO S/S OF APPARENT DISTRESS AT THIS TIME. PATIENT BREATHING IS UNLABORED WITH EQUAL RISE AND FALL OF THE CHEST. PATIENT IS ALERT AND ORIENTED X 3 ON ROOM AIR WITH A SPO2 97%. PATIENT IS COMPLIANT WITH MEDICATIONS, ANXIOUS, MAKES NEEDS KNOWN, RESPONDING TO INTERNAL STIMULI, AND COOPERATIVE. PATIENT DENIES SUICIDAL AND HOMICIDAL IDEATIONS AT THIS TIME. PATIENT ASSISTED WITH TURNING AND REPOSITIONING Q2HR AND PRN FOR COMFORT AND CIRCULATION. PATIENT HAS NO NEEDS AT THIS TIME. PATIENT EDUCATED ON THE USE OF THE CALL WEI. PATIENT BED SIDE RAILS UP X 2 FOR SAFETY. PATIENT BED IS LOCKED, LOW, WITH BED ALARM ON. WILL CONTINUE TO MONITOR THIS PATIENT Q15 MINUTES WITH THE HELP OF STAFF TO MAINTAIN SAFETY.
[2022-04-24 20:00] VITALS: BP 123/71
--- NOTE | 2022-04-24 20:06 | NUR ---
GPS RN NOTE, PATIENT HAS A COMPLAINT OF FEELING ANXIOUS AND IS REQUESTING KLONOPIN AT THIS TIME. PATIENT VITAL SIGNS ARE STABLE. GAVE KLONOPIN 0.5MG PO Q4HR PRN ORDERED. WILL REASSESS FOR ANXIETY AND I WILL CONTINUE TO MONITOR THIS PATIENT WITH THE HELP OF STAFF.
[2022-04-24] MEDS: MIRTAZAPINE 15 MG TABLET PO SCH (21:22)
[2022-04-25 08:00] VITALS: BP 109/67
--- NOTE | 2022-04-25 08:01 | NUR ---
KEN Discharge Note: Patient will be discharged to detention facility to [facility] [address] [place] [address]; . Please arrange Ambulance transportation for patient to be picked up at 1PM. Torch Straightener And Heater spoke with MEHDI, Industrial Energy Engineer at [facility]; ([phone]), who stated patient will be accepted at facility today. Patient is alert and oriented x3, and is not able to plan for self-care at this time, but is willing to accept care. Patient denies any suicidal or homicidal ideations. Patient is aware and agreeable with discharge plans. SW attempted to contact pts mother Soledad ([phone]) is aware and agreeable. Patient will follow-up at the facility with Dr. Casanova [address], [place] [address]; ([phone]) and [place] [facility] C[facility] Dr. Ferguson at [address], [place] [address]; ([phone]). Patient presents with euthymic mood and congruent affect.
--- NOTE | 2022-04-25 09:10 | NUR ---
Lazarus Saldaña COATING ENGINEER of Dr. Casanova gave an order to D/C hold and D/C to [facility] and to follow up [place] [address] [facility], [place] [address] with the tel# of [phone] and to follow up with the legislative director Dr. Ferguson at [address] [facility] [address], [facility] [address] with the tel# of [phone]. Pt. without distress, denies suicidal and homicidal. Belongings ready and discharge papers ready.
[2022-04-25] MEDS: clonazePAM 0.5 MG TABLET PO PRN (09:22)
--- NOTE | 2022-04-25 10:21 | NUR ---
Irene Adam NP made aware of the discharge and reconciled the meds to continue in the facility and pt. signed the discharge papers.
--- NOTE | 2022-04-25 11:24 | NUR ---
Report given to Rose ROGER over the facility.
--- NOTE | 2022-04-25 13:35 | NUR ---
Pt. left the unit via ambulance and transported via a gurney with belongings. Left without distress and no agitation noted. V/S taken: BP 146/80, AL 76, temp. 98.6 , RR 18 and oxygen sat 96%.
== END 2022-04-25 13:35 | DRG 885 ==
LOC: ER 07:22 → TRANSITION 12:10 → TELE 19:57 → TRANSITION 19:57 → GPS 23:10
PROVIDERS: ADMIT Nurse Practitioner Psychiatric/Mental Health; ATTEND Nurse Practitioner Acute Care
DX: F25.9 Schizoaffective disorder, unspecified (principal); T43.021A Poisoning by tetracyclic antidepressants, accidental (unintentional), initial encounter; R45.851 Suicidal ideations; E87.6 Hypokalemia; F42.9 Obsessive-compulsive disorder, unspecified; Z91.51 Personal history of suicidal behavior; F32.9 Major depressive disorder, single episode, unspecified; F41.9 Anxiety disorder, unspecified; E80.6 Other disorders of bilirubin metabolism; F29 Unspecified psychosis not due to a substance or known physiological condition; Z79.899 Other long term (current) drug therapy; Y92.9 Unspecified place or not applicable; F68.10 Factitious disorder imposed on self, unspecified; Z20.822 Contact with and (suspected) exposure to COVID-19
CPT/HCPCS: 36415; 80048-TC; 80061-TC; 80076-TC; 81001; 82962-TC; 83735-TC; 84100-TC; 85025-TC; 87081-TC; 93307-TC; 97116-TC; 97530-TC; C9113; C9803; G0480; J3480; J7030